=== PATIENT | female | born 2005 | race Caucasian/White ===

== ENCOUNTER 2024-11-05 11:21 | Outpatient (CLI) | payer OTHER, SELFPAY ==
--- OUTSIDE RECORDS SUMMARY | 2024-11-05 11:40 | XMS_ITS | Clinical Summary ---
Author Organization [facility] Address [address] [place] [id number] Care Team Providers Care Icing Coater Name Role Phone Unavailable Primary Care Provider Unavailabl e Social History Tobacco Use Types Packs/Day Years Used Date Smoking Tobacco: Never Assessed Comments Unknown Sex and Gender Information Value Date Recorded Sex Assigned at Not on file Legal Sex Female 5:39 PM CDT Gender Identity Not on file Sexual Orientation Not on file Plan of Treatment Health Maintenance Due Date Last Done Comments Annual Physical 12/25/2006 HPV Vaccines (1 - 3-dose series) 12/25/2018 Meningococcal B Vaccine (1 o f 2 - Standard) 2019 Hepatitis C 12/25/2021 DTaP, Tdap and Td Vaccines ( 1 - Tdap) 12/25/2022 Hepatitis B Vaccines (1 of 3 - 19+ 3-dose series) 12/25/2022 COVID-19 Vaccine (1 - 2023-2 5 season) 2023 Meningococcal Vaccine Aged Out No tara tom eligible based on patient's age to complete this topic Pneumococcal Vaccine: Pediat rics (0 to 5 Years) and At-Risk Patients (6 to 49 Years) Aged Out No longer eligible b ased on patient's age to complete this topic RSV Immunizations Under 20 Months Aged Out No longer eligible based on patient's age to complete this topic
--- NOTE | 2024-11-13 12:23 | WPDHOLTEREM ---
Holter/Event Monitor Holter/Event Monitor Date of procedure: 11/05/24 Holter/Event Procedure: 3-7 Day Holter Monitor Indications: Palpitations Conclusion: 1. 3 days holter monitor on 11/05/24. 2. Underlying rhythm is sinus rhythm with sinus arrhythmia. HR range 48-142 bpm; average HR 72 bpm. 3. There are rare premature supraventricular complexes, rare supraventricular couplets, and rare supraventricular triplets. No supraventricular tachycardia. One episode of ectopic atrial rhythm at 94 bpm lasting 4 beats. 4. There are rare premature ventricular complexes. No ventricular tachycardia. 5. No significant pauses greater than 3 seconds. 6. Patient reports 1 episode of symoptom of fluttering which demonstrates ectopic atrial rhythm as described above.
== END 2024-11-05 11:22 | disposition home or self-care (01) ==
PROVIDERS: PCP Family Medicine; Visit Provider Physician Assistant Medical
DX: R94.31 Abnormal electrocardiogram [ECG] [EKG] (principal); R00.2 Palpitations
CPT/HCPCS: 93242